=== PATIENT | female | born 1990 | race Caucasian/White ===

== ENCOUNTER 2021-04-24 20:49 | Emergency (ER) | payer OTHER ==
[2021-04-24 21:05] VITALS: BP 113/79; PULSE 73; TEMP 98.6; BMI 27.1
[2021-04-24] MEDS ORDERED: ACETAMINOPHEN 1000 MG/100 ML BAG IVPB ONE (21:10)
[2021-04-24] MEDS ORDERED: SULFAMETHOXAZOLE/TRIMETHOPRIM 800MG/160MG D.S. TABLET PO ONE (21:28)
[2021-04-24] MEDS ORDERED: SULFAMETHOXAZOLE/TRIMETHOPRIM 800MG/160MG D.S. TABLET ONE (21:30)
== END 2021-04-24 21:34 | disposition home or self-care (01) ==
LOC: FER 20:49
DX: L03.011 Cellulitis of right finger (principal)
CPT/HCPCS: 99283-25

== ENCOUNTER 2021-09-21 03:17 | Emergency (ER) | payer OTHER ==
[2021-09-21] MEDS ORDERED: SODIUM CHLORIDE 1,000 ML IV ONE (03:26)
[2021-09-21] MEDS ORDERED: ONDANSETRON 4 MG/2 ML VIAL IVPB ONE (03:26)
[2021-09-21 03:31] VITALS: BP 120/82; PULSE 83; TEMP 97.9; BMI 22.4
[2021-09-21] MEDS ORDERED: ONDANSETRON 4 MG/2 ML VIAL ONE (03:38)
[2021-09-21 04:05] LABS: BASO % 0.3 % (0-2.0); EOS % 0.2 % (0-4.5); HEMATOCRIT 36.6 % (32.4-45.2); HEMOGLOBIN 12.5 GM/dL (10.7-15.3); MCH 29.7 pg (25.7-33.7); MCHC 34.3 g/dl (32.0-36.0); MEAN CELL VOLUME 86.8 fl (80-96); MEAN PLT VOLUME 6.8 fl (7.5-11.1); MONO % 4.4 % (3.8-10.2); NEUT % 66.1 % (42.8-82.8); PLATELET COUNT 338 10^3/uL (134-434); RBC 4.22 M/mm3 (3.60-5.2); RDW 13.4 % (11.6-15.6); WHITE BLOOD COUNT 8.3 K/mm3 (4.0-10.0)
[2021-09-21 04:10] LABS: EPI CELLS 20 /uL (0-25.1); HCG,QUALITATIVE URINE Negative; HYALINE CASTS 1 /uL (0-3.1); PH,URINE 5.5 (5.0-8.0); URINE APPEARANCE CLEAR; URINE BACTERIA 12 /uL (0-1359); URINE BILIRUBIN NEGATIVE (NEGATIVE); URINE COLOR YELLOW; URINE GLUCOSE (UA) NEGATIVE (NEGATIVE); URINE KETONE NEGATIVE (NEGATIVE); URINE LEUK ESTERASE NEGATIVE (NEGATIVE); URINE NITRITE NEGATIVE (NEGATIVE); URINE PROTEIN 1+ (NEGATIVE); URINE RBC 16 /uL (0-23.9); URINE UROBILINOGEN 0.2 mg/dL (0.2-1.0); URINE WBC 8 /uL (0-25.8)
[2021-09-21 04:26] LABS: ALBUMIN 3.4 g/dl (3.4-5.0); CALCIUM 8.5 mg/dL (8.5-10.1)
[2021-09-21 04:27] LABS: BLOOD UREA NITROGEN 18.2 mg/dL (7-18)
[2021-09-21 04:29] LABS: CREATININE 0.6 mg/dL (0.55-1.3)
[2021-09-21 04:31] LABS: BILIRUBIN,TOTAL 0.2 mg/dL (0.2-1); TOT PROT 6.6 g/dl (6.4-8.2)
== END 2021-09-21 04:46 | disposition home or self-care (01) ==
LOC: FER 03:17
PROC: 3E033NZ Introduction of Analgesics, Hypnotics, Sedatives into Peripheral Vein, Percutaneous Approach (ICD-10-PCS; principal; 2021-09-21)
PROC: 3E0337Z Introduction of Electrolytic and Water Balance Substance into Peripheral Vein, Percutaneous Approach (ICD-10-PCS; 2021-09-21)
DX: R11.10 Vomiting, unspecified (principal)
CPT/HCPCS: 36415; 80053; 81003; 83690; 84703; 85025; 87086; 99284-25

== ENCOUNTER 2021-09-30 22:16 | Emergency (ER) | payer OTHER ==
[2021-09-30 22:25] VITALS: BP 102/66; PULSE 67; TEMP 99; BMI 22.4
[2021-09-30] MEDS ORDERED: FAMOTIDINE 20 MG TABLET PO ONE (22:41)
[2021-09-30] MEDS ORDERED: diphenhydrAMINE HCL 25 MG CAPSULE (FP) PO ONE ×2 (22:43→22:57)
[2021-09-30] MEDS ORDERED: DEXAMETHASONE 4 MG TABLET (FP) PO ONE (22:45)
[2021-09-30] MEDS ORDERED: FAMOTIDINE 20 MG TABLET ONE (22:57)
[2021-09-30] MEDS ORDERED: DEXAMETHASONE 4 MG TABLET (FP) ONE (22:57)
== END 2021-09-30 23:24 | disposition home or self-care (01) ==
LOC: FER 22:16
DX: L25.9 Unspecified contact dermatitis, unspecified cause (principal)
CPT/HCPCS: 99283-25

== ENCOUNTER 2021-10-02 19:50 | Emergency (ER) | payer OTHER ==
[2021-10-02 20:07] VITALS: BP 119/82; PULSE 66; TEMP 98.1; BMI 27.1
[2021-10-02] MEDS ORDERED: predniSONE 20 MG TABLET (UD) PO ONE (20:07)
[2021-10-02] MEDS ORDERED: predniSONE 20 MG TABLET (UD) ONE (20:17)
== END 2021-10-02 20:26 | disposition home or self-care (01) ==
LOC: FER 19:50
DX: L25.9 Unspecified contact dermatitis, unspecified cause (principal)
CPT/HCPCS: 99283-25

== ENCOUNTER 2023-02-02 16:00 | Emergency (ER) | payer OTHER ==
[2023-02-02 16:26] VITALS: BP 134/78; PULSE 74; RESP 16; TEMP 98.3; BMI 26.4
[2023-02-02 16:26] LABS: HCG,QUALITATIVE URINE Negative
[2023-02-02 17:57] LABS: HEMATOCRIT 38.4 % (32.4-45.2); HEMOGLOBIN 12.3 G/dL (10.7-15.3); MCH 27.6 pg (25.7-33.7); MCHC 32.1 g/dl (32.0-36.0); MEAN CELL VOLUME 86.1 fl (80-96); MEAN PLT VOLUME 8.4 fl (7.5-11.1); PLATELET COUNT 358.4 10^3/uL (134-434); RBC 4.46 10^6/uL (3.60-5.2); RDW 16.1 % (11.6-15.6)
[2023-02-02 19:07] LABS: POTASSIUM 3.6 mmol/L (3.5-5.1)
[2023-02-02 19:10] LABS: ALBUMIN 3.8 g/dl (3.4-5.0); BLOOD UREA NITROGEN 12.3 mg/dL (7-18)
[2023-02-02 19:13] LABS: CREATININE 0.7 mg/dL (0.55-1.3)
[2023-02-02 19:14] LABS: TOT PROT 7.2 g/dl (6.4-8.2)
[2023-02-02 19:15] LABS: BILIRUBIN,TOTAL 0.4 mg/dL (0.2-1)
[2023-02-02 19:24] LABS: ANISOCYTOSIS 1+; PLATELET ESTIMATE ADEQUATE
== END 2023-02-02 17:59 | disposition home or self-care (01) ==
LOC: FER 16:00
DX: R10.2 Pelvic and perineal pain (principal)
CPT/HCPCS: 36415; 80053; 81003; 84703; 85027; 87086; 99283-25

== ENCOUNTER 2023-03-08 21:11 | Emergency (ER) | payer OTHER ==
[2023-03-08 21:29] VITALS: BP 124/80; PULSE 75; RESP 16; TEMP 98.2; BMI 24.2
[2023-03-08 22:06] LABS: HCG,QUALITATIVE URINE Negative
[2023-03-08 22:38] LABS: EPITHELIAL CELLS 0-5 /hpf
[2023-03-08 23:12] LABS: HEMATOCRIT 35.1 % (32.4-45.2); HEMOGLOBIN 11.4 G/dL (10.7-15.3); MCH 27.6 pg (25.7-33.7); MCHC 32.5 g/dl (32.0-36.0); MEAN PLT VOLUME 7.3 fl (7.5-11.1); PLATELET COUNT 388.6 10^3/uL (134-434); RBC 4.13 10^6/uL (3.60-5.2); RDW 15.5 % (11.6-15.6); WHITE BLOOD COUNT 7.4 10^3/uL (4.0-10.8)
[2023-03-08 23:40] LABS: ALBUMIN 4.4 g/dl (3.4-5.0); BILIRUBIN,TOTAL 0.2 mg/dl (0.2-1); CALCIUM 9.4 mg/dl (8.5-10.1); CREATININE 0.6 mg/dl (0.6-1.3); POTASSIUM 3.8 mmol/L (3.5-5.1); TOT PROT 6.6 g/dl (6.4-8.2)
== END 2023-03-08 23:45 | disposition home or self-care (01) ==
LOC: FER 21:11
DX: R10.31 Right lower quadrant pain (principal); R10.2 Pelvic and perineal pain
CPT/HCPCS: 36415; 76830-TC; 80053; 81003; 81015; 84703; 85027; 99284-25